=== PATIENT | male | born 1970 | race Caucasian/White ===

== ENCOUNTER 2020-12-27 08:01 | Day surgery (SDC) | payer BC ==
--- NOTE | 2020-12-27 08:00 | PCM.PREANE ---
Preanesthetic Assessment - Anesthesia/Transfusion/Family Hx Anesthesia History: Prior Anesthesia Without Reaction Transfusion History: No Prior Transfusion(s) - Review of Systems General: No Symptoms Pulmonary: No Symptoms Cardiovascular: No Symptoms Gastrointestinal: No Symptoms Neurological: No Symptoms Other: Reports: None - Physical Assessment NPO Status Date: 12/27/20 NPO Status Time: 00:00 Height: 6 ft Weight: 240 lb Mental Status: Alert & Oriented x3 Airway Class: Mallampati = 2 Dentition: Reports: Normal Dentition Thyro-Mental Finger Breadths: 3 Mouth Opening Finger Breadths: 3 ROM/Head Extension: Full Lungs: Clear to Auscultation, Normal Respiratory Effort Cardiovascular: Regular Rate, Regular Rhythm - Allergies Allergies/Adverse Reactions: Allergies Allergy/AdvReac Type Severity Reaction Status Date / Time No Known Allergies Allergy Verified 12/21/20 10:34 - Acknowledgements Anesthesia Type Planned: General Anesthesia Pt an Appropriate Candidate for the Planned Anesthesia: Yes Alternatives and Risks of Anesthesia Discussed w Pt/Guardian: Yes Pt/Guardian Understands and Agrees with Anesthesia Plan: Yes PreAnesthesia Questionnaire HEENT History: Reports: Other (See Below) Other HEENT History: uses reading glasses Cardiovascular History: Reports: None Respiratory History: Reports: None Gastrointestinal History: Reports: None Genitourinary History: Reports: Renal Calculus Other Genitourinary History: hx of passing a kidney stone Musculoskeletal History: Reports: None Neurological History: Reports: None Psychiatric History: Reports: None Endocrine/Metabolic History: Reports: Obesity/BMI 30+ Hematologic History: Reports: None Immunologic History: Reports: None Oncologic (Cancer) History: Reports: None Dermatologic History: Reports: None - Past Surgical History Head Surgeries/Procedures: Reports: None HEENT Surgical History: Reports: None Cardiovascular Surgical History: Reports: None Respiratory Surgical History: Reports: None GI Surgical History: Reports: None Musculoskeletal Surgical History: Reports: Ganglion Cyst Other Musculoskeletal Surgeries/Procedures:: right wrist - SUBSTANCE USE Tobacco Use Status *Q: Never Tobacco User Recreational Drug Use History: No - HOME MEDS Home Medications: Home Meds . [No Known Home Meds] 12/21/20 [History] - CURRENT (IN HOUSE) MEDS Current Meds: Current Medications Lactated Ringer's (Ringers, Lactated) 1,000 mls @ 125 mls/hr IV ASDIRECTED [facility]
[~2020-12-27 08:01] MED LIST: Lactated Ringers 1,000 ML IV SCH
[2020-12-27] MEDS ORDERED: Propofol 200 MG/20 ML SDV ONE ×2 (10:02→10:34)
[2020-12-27] MEDS ORDERED: fentaNYL 100 MCG/2 ML SDV ONE (10:02)
--- NOTE | 2020-12-27 10:45 | PCM.OPNOTE ---
- General Post-Op/Procedure Note Date of Surgery/Procedure: 12/27/20 Operative Procedure(s): Colonoscopy Findings: Normal colon Dictation number [id number] Pre Op Diagnosis: Screening Post-Op Diagnosis: normal colon Anesthesia Technique: Moderate Sedation Primary Surgeon: Mann Lugo Pathology: none Complications: None Condition: Good
--- NOTE | 2020-12-27 10:50 | PCM.POSTAN ---
POST ANESTHESIA ASSESSMENT - MENTAL STATUS Mental Status: Somnolent - VITAL SIGNS Vital Signs: Last Vital Signs Temp 97.0 F 12/27/20 08:43 Pulse 90 12/27/20 08:43 Resp 16 12/27/20 08:43 BP 148/99 H 12/27/20 08:43 Pulse Ox 96 12/27/20 08:43 - RESPIRATORY Respiratory Status: Respiratory Rate WNL, Airway Patent, O2 Saturation Stable, Supplemental Oxygen - CARDIOVASCULAR CV Status: Pulse Rate WNL, Blood Pressure Stable - GASTROINTESTINAL GI Status: No Symptoms - POST OP HYDRATION Hydration Status: Adequate & Stable
--- NOTE | 2020-12-27 11:01 | PCM48HPAN ---
Post Anesthesia Note - EVALUATION WITHIN 48HRS OF ANESTHETIC Vital Signs in Normal Range: Yes Patient Participated in Evaluation: Yes Respiratory Function Stable: Yes Airway Patent: Yes Cardiovascular Function Stable: Yes Hydration Status Stable: Yes Pain Control Satisfactory: Yes Nausea and Vomiting Control Satisfactory: Yes Mental Status Recovered: Yes Vital Signs: Last Vital Signs Temp 99.3 F 12/27/20 10:43 Pulse 86 12/27/20 10:53 Resp 14 12/27/20 10:53 BP 116/60 12/27/20 10:53 Pulse Ox 95 12/27/20 10:53
--- NOTE | 2020-12-27 13:29 | OR ---
SURGEON: JEANETTE LÓPEZ MD DATE OF PROCEDURE: 12/27/2020 PREOPERATIVE DIAGNOSIS: Screening colonoscopy. POSTOPERATIVE DIAGNOSIS: Normal colonoscopy. PRIMARY SURGEON: Jeanette López MD ANESTHESIA: With Anesthesiology. EXTENT OF THE COLONOSCOPY: To the cecum. BOWEL PREP: Excellent. LIMITATIONS: None. REASON FOR PROCEDURE: Patient is a pleasant 50-year-old gentleman. He denies any blood in his stool. He denies any family history of colon cancer. This will be his first colonoscopy. PROCEDURE IN DETAIL: Physical examination was performed. The major risks and benefits associated with the procedure were explained to the patient again in detail. The patient verbalized understanding and agreement with the same. The patient was then connected to appropriate monitoring device and IV started. EKG, pulse, pulse oximetry, blood pressure, and capnography were monitored throughout the entire procedure. Continuous oxygen and sedation were provided by the anesthesiologist. Patient was placed in left lateral decubitus position. Sedation began. After adequate sedation was achieved, a digital rectal exam was performed. No rectal masses or polyps were felt. Now, a well-lubricated Olympus colonoscope was inserted into the rectum and advanced under direct visualization to the level of the cecum. The cecum was identified by both visual and anatomic landmarks. Photographs were taken of the cecal cap and the appendix orifice. The scope was then slowly withdrawn in somewhat circular fashion looking at the color, texture, anatomy, and integrity of mucosa from the cecum to the anal canal. The patient had some minimal light liquid stool which was suctioned and irrigated out for excellent look at the mucosa. No polyps or diverticulum were seen. Scope was retroflexed in the rectum, had some minimal noninflamed internal hemorrhoids. Scope was completely removed and the procedure was terminated. ENDOSCOPIC DIAGNOSIS: Normal colonoscopy. RECOMMENDATIONS: Followup colonoscopy in 10 years. He will need one sooner if he develops signs and symptoms such as change in bowel habits or blood in his stool. IRENA / DAVID /[id number]
== END 2020-12-27 11:19 | disposition home or self-care (01) ==
LOC: MW.SDS 08:01
PROVIDERS: ATTEND Surgery
DX: Z12.11 Encounter for screening for malignant neoplasm of colon (principal); I10 Essential (primary) hypertension; E66.9 Obesity, unspecified; Z68.32 Body mass index [BMI] 32.0-32.9, adult; Z98.890 Other specified postprocedural states
CPT/HCPCS: 45378; J2704; J3010; J7120; 00812

== ENCOUNTER 2024-01-14 10:44 | Day surgery (SDC) | payer BC ==
[~2024-01-14 10:44] MED LIST changes: +Albuterol 0.083% 2.5 MG/3 ML Neb Soln NEB PRN; +HYDROmorphone 1 MG/ML Syringe IVPUSH PRN; -Lactated Ringers 1,000 ML IV SCH; +Metoclopramide 10 MG/2 ML SDV IVPUSH PRN; +Morphine 2 MG/ML SYRINGE IVPUSH PRN; +Naloxone 0.4 MG/ML SDV IVPUSH PRN; +Ondansetron 4 MG/2 ML SDV IVPUSH PRN; +Phenylephrine HCl In 0.9% NaCl 1 MG/10 ML Syringe IVPUSH PRN; +Ropivacaine 0.5% 5 MG/ML 30 ML SDV ONE; +Ropivacaine HCl/PF 200 ML ONE; +ceFAZolin 2 GM in Sodium Chloride 0.9% 50 ML IV ONE; +fentaNYL 50 MCG/ML SDV IVPUSH PRN
[2024-01-14] MEDS ORDERED: Water For Injection, Sterile 20 ML ONE (10:46)
[2024-01-14] MEDS ORDERED: dexmedeTOMIDine HCl 200 MCG/2 ML SDV ONE (10:46)
[2024-01-14] MEDS ORDERED: EPINEPHrine 1 MG/1 ML Amp ONE (10:48)
[2024-01-14] MEDS ORDERED: fentaNYL 100 MCG/2 ML SDV ONE ×2 (10:50→13:46)
[2024-01-14] MEDS ORDERED: Lidocaine 1% with EPINEPHrine 1:100,000 10 ML MDV ONE (10:50)
[2024-01-14] MEDS ORDERED: Bupivacaine 0.5% 30 ML SDV ONE (10:51)
[2024-01-14] MEDS ORDERED: Scopalamine 1mg/3day Transdermal Patch ONE (11:00)
[2024-01-14] MEDS ORDERED: Gabapentin 300 MG Cap ONE (11:01)
[2024-01-14] MEDS: Lactated Ringers 1,000 ML IV SCH (11:05)
[2024-01-14] MEDS ORDERED: Propofol 200 MG/20 ML SDV ONE (11:23)
[2024-01-14] MEDS ORDERED: Rocuronium Bromide 50 MG/5 ML Syringe ONE (11:25)
[2024-01-14] MEDS ORDERED: Phenylephrine 1% 10 MG/ML SDV ONE (11:51)
[2024-01-14] MEDS ORDERED: Dexamethasone 4 MG/ML 5 ML MDV ONE (11:57)
[2024-01-14] MEDS ORDERED: ceFAZolin 2 GM Vial ONE (11:57)
[2024-01-14] MEDS ORDERED: Ondansetron 4 MG/2 ML SDV ONE (11:57)
[2024-01-14] MEDS ORDERED: Ketorolac 30 MG/ML SDV ONE (13:00)
[2024-01-14] MEDS ORDERED: Sugammadex Sodium 200 MG/2 ML VIAL IV ONE (13:29)
== END 2024-01-14 16:25 | disposition home or self-care (01) ==
LOC: MW.SDS 10:44
PROVIDERS: ATTEND Orthopaedic Surgery
DX: M75.101 Unspecified rotator cuff tear or rupture of right shoulder, not specified as traumatic (principal); T14.8XXA Other injury of unspecified body region, initial encounter; I10 Essential (primary) hypertension
CPT/HCPCS: 29827; 29828; A9270; C1713; J0131; J0171; J0665; J0690; J1100; J1885; J2371; J2405; J2704; J2795; J3010; J3490; J7120